=== PATIENT | female | born 1980 | race Caucasian/White ===

== ENCOUNTER 2021-10-12 12:06 | Inpatient (IN) | payer OTHER ==
[~2021-10-12] VITALS: Ht 154.9 cm; Wt 68.0 kg
[2021-10-12 12:46] LABS: HEMOGLOBIN 10.1 gm/dl (12.3-15.3); RED BLOOD COUNT 3.48 M/UL (4.00-5.10); WHITE BLOOD COUNT 9.7 K/UL (4.5-11.0)
[2021-10-12 13:15] LABS: BUN/CREATININE RATIO 10 (0-10)
[2021-10-12] MEDS ORDERED: HYDROCODON-ACE1 EAC2 PO (17:07)
[2021-10-12] MEDS ORDERED: COLACE 100MG C100 MG PO (17:07)
[2021-10-12] MEDS ORDERED: IBUPROFEN800 MG PO (17:07)
[2021-10-13 05:55] LABS: HEMOGLOBIN 8.4 gm/dl (12.3-15.3)
== END 2021-10-14 18:24 | disposition home or self-care (01) | DRG 788 ==
LOC: GENOP 12:06 → OB 12:25
PROVIDERS: ADMIT Obstetrics & Gynecology
PROC: 10D00Z1 Extraction of Products of Conception, Low, Open Approach (ICD-10-PCS; principal; 2021-10-12 16:34)
DX: O13.4 Gestational [pregnancy-induced] hypertension without significant proteinuria, complicating childbirth (principal); O32.1XX0 Maternal care for breech presentation, not applicable or unspecified; Z3A.37 37 weeks gestation of pregnancy; Z37.0 Single live birth; Z98.890 Other specified postprocedural states; Z80.3 Family history of malignant neoplasm of breast; Z88.2 Allergy status to sulfonamides
CPT/HCPCS: 36415; 80053; 81001; 82570; 82800; 84156; 84550; 85014; 85018; 85025; C9113; J0690; J1885; J2274; J2370; J2405; J2590; J3010